=== PATIENT | male | born 1990 | race Hispanic/Latino ===

== ENCOUNTER 2016-12-10 21:10 | Emergency (ER) | payer SELFPAY ==
--- NOTE | 2016-12-11 00:15 | XRay Report ---
FINAL REPORT EXAM: XR FOOT 3 LT HISTORY: left foot PAIN COMPARISON: None available. FINDINGS: Three views of the left foot obtained. No radiopaque foreign body. Bony structures are intact. Joint spaces are preserved. No acute fracture dislocation. IMPRESSION: No acute bony abnormality.
[2016-12-11] MEDS ORDERED: MOTRIN PO ONE (00:52)
--- NOTE | 2016-12-11 00:57 | Emergency Department Report ---
- General Chief Complaint: Extremity Injury, Lower Stated Complaint: LEFT FOOT INJURY/STEPPED ON NAIL Time Seen by Provider: 12/11/16 00:52 Source: patient Mode of arrival: Ambulatory Limitations: No Limitations - History of Present Illness Initial Comments: 26-year-old male comes in for report of stepping on a nail today. Patient reports that his left foot stepped down on a nail. He denies any discharge from the site. He has a past medical history of kidney stones he currently takes no medications he's not sure of his last tetanus shot. He has no known drug allergies. - Related Data Previous Rx's Medication Instructions Recorded Last Taken Type Amoxicillin [Amoxicillin TAB] 875 mg PO BID #20 tablet 05/22/13 Unknown Rx Cephalexin [Keflex] 500 mg PO QID #40 capsule 12/11/16 Unknown Rx Ibuprofen [Motrin 600 MG tab] 600 mg PO Q8H #15 tablet 12/11/16 Unknown Rx Allergies Allergy/AdvReac Type Severity Reaction Status Date / Time No Known Allergies Allergy Unverified 05/22/13 15:34 ED Review of Systems ROS: Stated complaint: LEFT FOOT INJURY/STEPPED ON NAIL Other details as noted in HPI Constitutional: denies: chills, fever Eyes: denies: eye pain, eye discharge, vision change ENT: denies: ear pain, throat pain Respiratory: denies: cough, shortness of breath, wheezing Cardiovascular: denies: chest pain, palpitations Endocrine: no symptoms reported Gastrointestinal: denies: abdominal pain, nausea, diarrhea Genitourinary: denies: urgency, dysuria Musculoskeletal: other (left foot pain) Skin: other (left foot stepped on nail). denies: rash, lesions Neurological: denies: headache, weakness, paresthesias Psychiatric: denies: anxiety, depression Hematological/Lymphatic: denies: easy bleeding, easy bruising ED Past Medical Hx - Past Medical History Previous Medical History?: Yes Hx GERD: Yes - Surgical History Past Surgical History?: No - Social History Smoking Status: Never Smoker Substance Use Type: Alcohol - Medications Home Medications: Home Medications Medication Instructions Recorded Confirmed Last Taken Type Amoxicillin [Amoxicillin TAB] 875 mg PO BID #20 tablet 05/22/13 Unknown Rx Cephalexin [Keflex] 500 mg PO QID #40 capsule 12/11/16 Unknown Rx Ibuprofen [Motrin 600 MG tab] 600 mg PO Q8H #15 tablet 12/11/16 Unknown Rx ED Physical Exam - General Limitations: No Limitations General appearance: alert, in no apparent distress - Head Head exam: Present: atraumatic, normocephalic - Eye Eye exam: Present: normal appearance - ENT ENT exam: Present: mucous membranes moist - Neurological Exam Neurological exam: Present: alert, oriented X3 - Skin Skin exam: Present: warm, dry, other (puncture wound left foot hindfoot, tender to palpate nonerythematous no swelling no drainage no active bleeding) ED Course Vital Signs 12/10/16 21:15 Temperature 98.3 F Pulse Rate 66 Respiratory 20 Rate Blood Pressure 135/69 O2 Sat by Pulse 100 Oximetry ED Medical Decision Making - Medical Decision Making Patient has been evaluated by this provider fast track. Discussed with patient that we will place him on Keflex antibiotic one tablet by mouth 4 times a day for 10 days as well as patient to be administered a tetanus booster. Discussed the patient he will need to return to the emergency room if there is any signs of infection. Discharge swelling redness to the site. Patient verbalized understanding Critical care attestation.: If time is entered above; I have spent that time in minutes in the direct care of this critically ill patient, excluding procedure time. ED Disposition Clinical Impression: Puncture wound of foot, left Qualifiers: Encounter type: initial encounter Qualified Code(s): S91.332A - Puncture wound without foreign body, left foot, initial encounter Disposition: DISCHARGED TO HOME OR SELFCARE Is pt being admited?: No Does the pt Need Aspirin: No Condition: Stable Instructions: Puncture Wound (ED) Additional Instructions: Complete antibiotics as prescribed. Take Motrin for pain management. Return to the emergency room if there is any signs of infection such as spiking a fever. Discharge swelling redness to the site. Prescriptions: Cephalexin [Keflex] 500 mg PO QID #40 capsule Ibuprofen [Motrin 600 MG tab] 600 mg PO Q8H #15 tablet Referrals: PRIMARY CARE, [Primary Care Provider] - 3-5 Days [facility] [Outside] - 3-5 Days Forms: Work/School Release Form(ED), Accompanied Note
[2016-12-11 02:24] VITALS: BP 118/68
== END 2016-12-11 02:05 | disposition home or self-care (01) ==
LOC: ED 21:10
DX: S91.332A Puncture wound without foreign body, left foot, initial encounter (principal); K21.9 Gastro-esophageal reflux disease without esophagitis; W45.8XXA Other foreign body or object entering through skin, initial encounter; Y93.9 Activity, unspecified; Y92.9 Unspecified place or not applicable; Y99.9 Unspecified external cause status
CPT/HCPCS: 99283